=== PATIENT | male | born 1930 | race African-American/Black ===

== ENCOUNTER 2016-08-26 11:34 | Emergency (ER) | payer MEDICARE, OTHER ==
[~2016-08-26] VITALS: Ht 175.3 cm; Wt 93.0 kg
[~2016-08-26 11:34] MED LIST: AMLO10 PO; ASPI-94 PO; CALC600T10 PO; FERR325T PO; LISI40TA PO; PRAV80 PO; PRIL20TA2 PO
[2016-08-26 11:42] VITALS: BP 188/88; PULSE 89; RESP 20; TEMP 98.2; O2SAT 98
--- NOTE | 2016-08-26 11:45 | PD ---
Physical Exam Date Seen by Provider: Aug 26, 2016 Time Seen by Provider: 11:39 Narrative 85 y/o male her with complaints of sudden onset swaeting spell with nausea and vomiting while at [facility]. Patient has Cardiac Hx, but denies Chest pain and SOB. Patient diaphoretic and Noted to be Hypertensive in triage. Patient now only C/O nausea and is diaphoretic. Patient is on ASPIRIN 81 mg Daily and is not Diabetic. Cardiac protocols ordered. Patient awaiting Medical Bed placement. [facility] Medical Record Reviewed: Yes Supervised Visit with JOE: Yes Condition: Stable Donnell Zhang Aug 26, 2016 11:45
--- NOTE | 2016-08-26 12:33 | PD ---
HPI Chief Complaint: Dizziness Time Seen by Provider: 12:24 Travel History International Travel<30 days: No Contact w/Intl Traveler<30days: No Traveled to known affect area: No History of Present Illness HPI This patient comes to the emergency room complaining of lightheadedness. Duration is 3-4 days. [facility] but the patient cannot relay a diagnosis. He has not had any headache or syncope or chest pain. He denies vertigo sensation. He did feel nauseous today. He has chronic leg swelling and takes diuretics as needed. Severity is moderate. No alleviating factors. PFSH Past Medical History Hx Anticoagulant Therapy: Yes (ASA 81) Arthritis: Yes Blood Disorders: No Cancer: Yes (PROSTATE) Cardiovascular Problems: Yes (HTN) High Cholesterol: Yes Chemotherapy: No Congestive Heart Failure: Yes Diabetes: No Diminished Hearing: No Endocrine: No Gastrointestinal Disorders: Yes Genitourinary: No Hiatal Hernia: No Hypertension: Yes Immune Disorder: No Musculoskeletal: Yes Neurologic: No Psychiatric: No Reproductive: No Respiratory: No Radiation Therapy: Yes ([place] FOR PROSTATE CA) Ulcer: Yes Past Surgical History Abdominal Surgery: Yes (STOMACH ABCESS,) AICD: No Arteriovenous Shunt: No Insulin Pump: No Joint Replacement: Yes (L KNEE) Pacemaker: No Other Surgery: Yes (STOMACH ABCESS DRAINED) Social History Alcohol Use: Yes (occassionally ) Tobacco Use: No Substance Use: No Allergies-Medications (Allergen,Severity, Reaction): Coded Allergies: No Known Allergies (Unverified , 01/03/16) Reported Meds & Prescriptions Reported Meds & Active Scripts Active Reported B Complex (B-Complex Vitamins) 1 Cap 1 Cap PO DAILY Calcium Plus Vitamin D (Calcium Carbonate-Vitamin D) 500-50 Mg-Unit Cap 1 Cap PO BID Ferrous Sulfate 325 Mg Tab 325 Mg PO DAILY Pravastatin 80 Mg Tab 80 Mg PO DAILY Omeprazole 40 Mg Cap 20 Mg PO INTERMITTENT Aspirin 81 Mg Tabdr 81 Mg PO DAILY Lisinopril 40 Mg Tab 40 Mg PO DAILY Review of Systems General / Constitutional: No: Fever Eyes: No: Visual changes HENT: No: Headaches Cardiovascular: Positive: Edema, No: Chest Pain or Discomfort Respiratory: No: Shortness of Breath Gastrointestinal: Positive: Nausea, No: Abdominal Pain Genitourinary: No: Dysuria Musculoskeletal: Positive: Edema, No: Pain Skin: No Rash Neurologic: Positive: Dizziness, No: Weakness Psychiatric: No: Depression Endocrine: No: Polydipsia Hematologic/Lymphatic: No: Easy Bruising Physical Exam Narrative GENERAL: Well-nourished, well-developed patient with nausea and lightheadedness. SKIN: Focused skin assessment reveals no rash and nodules. Skin is Warm and dry. HEAD: Atraumatic. Normocephalic. EYES: Pupils equal and round. No scleral icterus. No injection or drainage. ENT: No nasal bleeding or discharge. Mucous membranes pink and moist. NECK: Trachea midline. No JVD. CARDIOVASCULAR: Regular rate and rhythm. No murmur appreciated. RESPIRATORY: No accessory muscle use. Clear to auscultation. Breath sounds equal bilaterally. GASTROINTESTINAL: Abdomen soft, non-tender, nondistended. Hepatic and splenic margins not palpable. MUSCULOSKELETAL: No obvious deformities. No clubbing. No cyanosis. Symmetric edema the feet ankles and lower legs NEUROLOGICAL: Awake and alert. No obvious cranial nerve deficits. Motor grossly within normal limits. Normal speech. PSYCHIATRIC: Appropriate mood and affect; insight and judgment normal. Data Data Last Documented VS Vital Signs Date Time Temp Pulse Resp B/P Pulse Ox O2 Delivery O2 Flow Rate FiO2 08/26/16 13:47 65 17 156/74 100 08/26/16 11:42 98.2 Orders Electrocardiogram (08/26/16 11:53) Complete Blood Count With Diff (08/26/16 11:53) Comprehensive Metabolic Panel (08/26/16 11:53) Iv Access Insert/Monitor (08/26/16 11:53) Ondansetron Inj (Zofran Inj) (08/26/16 13:15) Labs Laboratory Tests Test 08/26/16 12:06 White Blood Count 8.1 TH/MM3 Red Blood Count 4.28 MIL/MM3 Hemoglobin 12.7 GM/DL Hematocrit 38.7 % Mean Corpuscular Volume 90.2 FL Mean Corpuscular Hemoglobin 29.6 PG Mean Corpuscular Hemoglobin 32.8 % Concent Red Cell Distribution Width 15.6 % Platelet Count 153 TH/MM3 Mean Platelet Volume 8.9 FL Neutrophils (%) (Auto) 53.5 % Lymphocytes (%) (Auto) 36.6 % Monocytes (%) (Auto) 8.5 % Eosinophils (%) (Auto) 1.1 % Basophils (%) (Auto) 0.3 % Neutrophils # (Auto) 4.4 TH/MM3 Lymphocytes # (Auto) 3.0 TH/MM3 Monocytes # (Auto) 0.7 TH/MM3 Eosinophils # (Auto) 0.1 TH/MM3 Basophils # (Auto) 0.0 TH/MM3 CBC Comment DIFF FINAL Differential Comment Sodium Level 139 MEQ/L Potassium Level 3.6 MEQ/L Chloride Level 105 MEQ/L Carbon Dioxide Level 24.0 MEQ/L Anion Gap 10 MEQ/L Blood Urea Nitrogen 22 MG/DL Creatinine 1.38 MG/DL Estimat Glomerular Filtration 59 ML/MIN Rate Random Glucose 133 MG/DL Calcium Level 9.8 MG/DL Total Bilirubin 0.6 MG/DL Aspartate Amino Transf 31 U/L (AST/SGOT) Alanine Aminotransferase 26 U/L (ALT/SGPT) Alkaline Phosphatase 67 U/L Total Protein 8.3 GM/DL Albumin 3.9 GM/DL MDM Medical Decision Making Medical Screen Exam Complete: Yes Emergency Medical Condition: Yes Medical Record Reviewed: Yes Differential Diagnosis Vasovagal episode, cardiac arrhythmia, electrolyte abnormality Narrative Course I have reviewed the patient's electronic medical record. IV placed CBC is normal Metabolic profile is normal LFTs are normal Patient is neurologically intact. No clinical suspicion of stroke or ACS. I reviewed his EKG which shows sinus rhythm without ST elevation or ectopy Extended cardiac monitoring reveals sinus rhythm without ectopy I ended related him in the emergency department and he walked fine and felt well Stable for outpatient follow-up Diagnosis Primary Impression: Lightheadedness Additional Impression: Nausea Additional Instructions: The patient was advised to follow up with their physician and return if they worsen. Med/Other Pt SpecificInfo: Other Disposition: 01 DISCHARGE HOME Condition: Stable Colin Breen MD Aug 26, 2016 12:33
[2016-08-26 12:34] LABS: AUTOMATED NEUTROPHIL # 4.4 TH/MM3 (1.8-7.7); BASOPHIL % 0.3 % (0.0-2.0); EOSINOPHIL # 0.1 TH/MM3 (0-0.4); EOSINOPHIL % 1.1 % (0.0-4.0); HEMATOCRIT 38.7 % (39.0-51.0); HEMO FLAGS DIFF FINAL; LYMPH % 36.6 % (9.0-44.0); MEAN CELL VOLUME 90.2 FL (80.0-100.0); MEAN CORPUSCULAR HEMOGLOBIN 29.6 PG (27.0-34.0); MEAN CORPUSCULAR HGB CONC 32.8 % (32.0-36.0); MONO % 8.5 % (0.0-8.0); NEUT % 53.5 % (16.0-70.0); PLATELET COUNT 153 TH/MM3 (150-450); RED BLOOD COUNT 4.28 MIL/MM3 (4.50-5.90); RED CELL DISTRIBUTION WIDTH 15.6 % (11.6-17.2); WHITE BLOOD COUNT 8.1 TH/MM3 (4.0-11.0)
[2016-08-26] MEDS ORDERED: LISI40TA PO (12:52)
[2016-08-26] MEDS ORDERED: ASPI1TAB69 PO (12:52)
[2016-08-26] MEDS ORDERED: CALCCAP8 PO (12:52)
[2016-08-26] MEDS ORDERED: OMEP40CA2 PO (12:52)
[2016-08-26] MEDS ORDERED: FERR325T PO (12:52)
[2016-08-26] MEDS ORDERED: PRAV80TA2 PO (12:52)
[2016-08-26] MEDS ORDERED: VITACAP7 PO (12:52)
[2016-08-26 12:54] LABS: ALT (GPT) 26 U/L (12-78); ANION GAP 10 MEQ/L (5-15); AST (GOT) 31 U/L (15-37); BLOOD UREA NITROGEN 22 MG/DL (7-18); CHLORIDE 105 MEQ/L (98-107); GLOMERULAR FILTRATION RATE 59 ML/MIN (>89); POTASSIUM 3.6 MEQ/L (3.5-5.1); SODIUM (NA) 139 MEQ/L (136-145)
[2016-08-26 12:56] LABS: ALKALINE PHOSPHATASE 67 U/L (45-117); TOTAL BILIRUBIN ADULT 0.6 MG/DL (0.2-1.0)
[2016-08-26] MEDS ORDERED: ONDANSETRON HCL 4 MG/2 ML VIAL IV ONE (13:15)
[2016-08-26 13:47] VITALS: BP 156/74; PULSE 65; RESP 17; O2SAT 100
--- NOTE | 2016-08-27 23:09 | EKG ---
Date Performed: 08/26/2016 Time Performed: 12:10:51 PTAGE: 85 years EKG: Sinus rhythm MODERATE VOLTAGE CRITERIA FOR LVH, CONSIDER NORMAL VARIANT BORDERLINE ECG PREVIOUS TRACING : 03/15/2012 05.59 Compared to prior tracing no significant change DOCTOR: Raza Hays Interpretating Date/Time 08/27/2016 23:07:59
== END 2016-08-26 14:30 | disposition home or self-care (01) ==
LOC: NEPC 11:34
DX: R42 Dizziness and giddiness (principal); R11.0 Nausea
CPT/HCPCS: 80053; 85025; 93005; 96374; 99284; J2405

== ENCOUNTER 2017-01-23 07:27 | Emergency (ER) | payer MEDICARE, OTHER ==
[~2017-01-23] VITALS: Ht 177.8 cm; Wt 100.0 kg
[~2017-01-23 07:27] MED LIST changes: -AMLO10 PO; -ASPI-94 PO; +ASPI1TAB69 PO; -CALC600T10 PO; +CALCCAP8 PO; +OMEP40CA2 PO; -PRAV80 PO; +PRAV80TA2 PO; -PRIL20TA2 PO; +VITACAP7 PO
[2017-01-23 07:31] VITALS: BP 174/80; PULSE 73; RESP 17; TEMP 97.6; O2SAT 96
[2017-01-23] MEDS ORDERED: SODIUM CHLOR 0.9% 1000 ML INJ 1,000 ML IV ONE (07:54)
[2017-01-23] MEDS ORDERED: SODIUM CHLORIDE 0.9% FLUSH 10 ML FLUSH IVF PRN (08:00)
[2017-01-23 08:15] VITALS: O2SAT 96
--- NOTE | 2017-01-23 08:23 | PD ---
HPI . Lightheadedness Chief Complaint: Dizziness Time Seen by Provider: 07:54 Travel History International Travel<30 days: No Contact w/Intl Traveler<30days: No Traveled to known affect area: No History of Present Illness HPI This patient presents with a chief complaint of lightheadedness which was noted on awakening this morning. It has been associated with nausea and one episode of emesis. He does not describe vertigo. He denies any associated symptoms. He has not noted any modifying factor such as exacerbation with movement or standing. Symptoms are mild. PFSH Past Medical History Hx Anticoagulant Therapy: Yes (ASA 81) Arthritis: Yes Blood Disorders: No Cancer: Yes (PROSTATE) Cardiovascular Problems: Yes (HTN) High Cholesterol: Yes Chemotherapy: No Congestive Heart Failure: Yes Diabetes: No Diminished Hearing: No Endocrine: No Gastrointestinal Disorders: Yes Genitourinary: No Hiatal Hernia: No Hypertension: Yes Immune Disorder: No Implanted Vascular Access Dvce: Yes Medical other: Yes (ARTHRITIS, REFLUX) Musculoskeletal: Yes Neurologic: No Psychiatric: No Reproductive: No Respiratory: No Radiation Therapy: Yes ([place] FOR PROSTATE CA) Ulcer: Yes Past Surgical History Abdominal Surgery: Yes (STOMACH ABCESS) AICD: No Arteriovenous Shunt: No Insulin Pump: No Joint Replacement: Yes (L KNEE) Pacemaker: No Other Surgery: Yes (STOMACH ABCESS DRAINED) Social History Alcohol Use: Yes ("SOMEWHAT") Tobacco Use: No Substance Use: No Allergies-Medications (Allergen,Severity, Reaction): Coded Allergies: No Known Allergies (Unverified , 01/23/17) Reported Meds & Prescriptions Reported Meds & Active Scripts Active Reported Pravastatin 80 Mg Tab 80 Mg PO DAILY Omeprazole 40 Mg Cap 20 Mg PO INTERMITTENT Lisinopril 40 Mg Tab 40 Mg PO DAILY Review of Systems Except as stated in HPI: all other systems reviewed are Neg General / Constitutional: No: Fever, Chills Eyes: No: Diploplia, Blurred Vision HENT: Positive: Lightheadedness, No: Headaches, Vertigo Cardiovascular: No: Chest Pain or Discomfort, Palpitations Respiratory: No: Shortness of Breath Gastrointestinal: Positive: Nausea, Vomiting, No: Diarrhea, Abdominal Pain Genitourinary: No: Urgency, Frequency, Dysuria Neurologic: Positive: Dizziness, No: Syncope, Focal Abnormalities, Paresthesia , Incontinence Physical Exam Narrative GENERAL: Patient is awake and alert and fully oriented. However, he seems a bit confused. He is having trouble remembering the events that brought him to the hospital. SKIN: warm/dry. HEAD: Normocephalic. Atraumatic. EYES: Pupils equal and round. No scleral icterus. No injection or drainage. ENT: No nasal bleeding or discharge. Mucous membranes pink and moist. NECK: Trachea midline. Full range of motion without pain.. CARDIOVASCULAR: Regular rate and rhythm. Heart sounds are normal. RESPIRATORY: No accessory muscle use. Clear to auscultation. Breath sounds equal bilaterally. GASTROINTESTINAL: Abdomen soft. Nontender. Bowel sounds present. Nondistended. MUSCULOSKELETAL: No obvious deformities. NEUROLOGICAL: Awake and alert. No obvious cranial nerve deficits. Motor grossly within normal limits. Normal speech. PSYCHIATRIC: Appropriate mood and affect; insight and judgment normal. Data Data Last Documented VS Vital Signs Date Time Temp Pulse Resp B/P (MAP) Pulse Ox O2 Delivery O2 Flow Rate FiO2 01/23/17 10:00 70 16 165/82 (109) 99 Nasal Cannula 2.00 01/23/17 07:31 97.6 Orders Orders Complete Blood Count With Diff (01/23/17 07:54) Comprehensive Metabolic Panel (01/23/17 07:54) Troponin I (01/23/17 07:54) Urinalysis - C+S If Indicated (01/23/17 07:54) Ct Brain W/O Iv Contrast(Rout) (01/23/17 07:54) Ecg Monitoring (01/23/17 07:54) Iv Access Insert/Monitor (01/23/17 07:54) Oximetry (01/23/17 07:54) Sodium Chloride 0.9% Flush (Ns Flush) (01/23/17 08:00) Sodium Chlor 0.9% 1000 Ml Inj (Ns 1000 M (01/23/17 07:54) Prochlorperazine Inj (Compazine Inj) (01/23/17 08:30) Diphenhydramine Inj (Benadryl Inj) (01/23/17 08:30) Cath For Specimen (01/23/17 10:56) Labs Laboratory Tests Test 01/23/17 08:10 01/23/17 11:50 White Blood Count 6.9 TH/MM3 Red Blood Count 4.13 MIL/MM3 Hemoglobin 12.3 GM/DL Hematocrit 37.8 % Mean Corpuscular Volume 91.7 FL Mean Corpuscular Hemoglobin 29.8 PG Mean Corpuscular Hemoglobin Concent 32.5 % Red Cell Distribution Width 16.0 % Platelet Count 132 TH/MM3 Mean Platelet Volume 8.5 FL Neutrophils (%) (Auto) 55.3 % Lymphocytes (%) (Auto) 35.7 % Monocytes (%) (Auto) 7.4 % Eosinophils (%) (Auto) 1.3 % Basophils (%) (Auto) 0.3 % Neutrophils # (Auto) 3.8 TH/MM3 Lymphocytes # (Auto) 2.5 TH/MM3 Monocytes # (Auto) 0.5 TH/MM3 Eosinophils # (Auto) 0.1 TH/MM3 Basophils # (Auto) 0.0 TH/MM3 CBC Comment DIFF FINAL Differential Comment Blood Urea Nitrogen 20 MG/DL Creatinine 1.30 MG/DL Random Glucose 150 MG/DL Total Protein 7.5 GM/DL Albumin 3.4 GM/DL Calcium Level 8.4 MG/DL Alkaline Phosphatase 60 U/L Aspartate Amino Transf (AST/SGOT) 22 U/L Alanine Aminotransferase (ALT/SGPT) 19 U/L Total Bilirubin 0.5 MG/DL Sodium Level 140 MEQ/L Potassium Level 3.5 MEQ/L Chloride Level 107 MEQ/L Carbon Dioxide Level 21.8 MEQ/L Anion Gap 11 MEQ/L Estimat Glomerular Filtration Rate 64 ML/MIN Troponin I LESS THAN 0.02 NG/ML Urine Color LIGHT-YELLOW Urine Turbidity CLEAR Urine pH 6.0 Urine Specific [place] 1.015 Urine Protein 30 mg/dL Urine Glucose (UA) NEG mg/dL Urine Ketones NEG mg/dL Urine Occult Blood NEG Urine Nitrite NEG Urine Bilirubin NEG Urine Urobilinogen LESS THAN 2.0 MG/DL Urine Leukocyte Esterase NEG Urine RBC LESS THAN 1 /hpf Urine WBC LESS THAN 1 /hpf Urine Squamous Epithelial Cells <1 /hpf Urine Mucus FEW /lpf Microscopic Urinalysis Comment CULT NOT INDICATED MDM Medical Decision Making Medical Screen Exam Complete: Yes Emergency Medical Condition: Yes Medical Record Reviewed: Yes (past medical history of hypertension and hyperlipidemia. He also has a history of cerebrovascular disease. He has a history of peptic ulcer disease and colonic polyps.) Interpretation(s) EKG shows a sinus rhythm with no acute ischemic change. Differential Diagnosis Differential diagnosis of dizziness includes but is not limited to vertigo, dehydration, acute blood loss, sepsis, ACS Narrative Course This patient presents with lightheadedness associated with nausea and vomiting. He was treated with Zofran via EVAC. The patient continued to have nausea and vomiting after presentation to us. This was treated with Compazine and Benadryl. His nausea has now resolved. Last Impressions Head CT 01/23/17 0754 Signed Impressions: Service Date/Time: Monday, January 23, 2017 08:20 - CONCLUSION: 1. No acute intracranial abnormality. Marco Rodríguez MD CBC & BMP Diagram 01/23/17 08:10 Total Protein 7.5, Albumin 3.4, Calcium Level 8.4 L, Alkaline Phosphatase 60, Aspartate Amino Transf (AST/SGOT) 22, Alanine Aminotransferase (ALT/SGPT) 19, Total Bilirubin 0.5 trop < 0.02 UA is negative. Diagnosis Primary Impression: Lightheadedness Additional Impression: Nausea and vomiting Qualified Codes: R11.2 - Nausea with vomiting, unspecified Patient Instructions: Acute Nausea and Vomiting (DC), Dizziness (ED), General Instructions Disposition: 01 DISCHARGE HOME Condition: Stable Zabrina Dickson MD Jan 23, 2017 08:23
[2017-01-23] MEDS ORDERED: PROCHLORPERAZINE INJ 10 MG/2 ML VIAL IV PUSH ONE (08:30)
[2017-01-23] MEDS ORDERED: diphenhydrAMINE HCL 50 MG/ML VIAL IV PUSH ONE (08:30)
[2017-01-23 08:31] LABS: AUTOMATED NEUTROPHIL # 3.8 TH/MM3 (1.8-7.7); BASOPHIL % 0.3 % (0.0-2.0); EOSINOPHIL # 0.1 TH/MM3 (0-0.4); EOSINOPHIL % 1.3 % (0.0-4.0); HEMATOCRIT 37.8 % (39.0-51.0); HEMO FLAGS DIFF FINAL; LYMPH % 35.7 % (9.0-44.0); LYMPHOCYTE # 2.5 TH/MM3 (1.0-4.8); MEAN CELL VOLUME 91.7 FL (80.0-100.0); MEAN CORPUSCULAR HEMOGLOBIN 29.8 PG (27.0-34.0); MEAN CORPUSCULAR HGB CONC 32.5 % (32.0-36.0); MONO % 7.4 % (0.0-8.0); NEUT % 55.3 % (16.0-70.0); PLATELET COUNT 132 TH/MM3 (150-450); RED BLOOD COUNT 4.13 MIL/MM3 (4.50-5.90); WHITE BLOOD COUNT 6.9 TH/MM3 (4.0-11.0)
[2017-01-23 08:44] LABS: ANION GAP 11 MEQ/L (5-15); AST (GOT) 22 U/L (15-37); BICARBONATE 21.8 MEQ/L (21.0-32.0); BLOOD UREA NITROGEN 20 MG/DL (7-18); CHLORIDE 107 MEQ/L (98-107); GLOMERULAR FILTRATION RATE 64 ML/MIN (>89); POTASSIUM 3.5 MEQ/L (3.5-5.1); SODIUM (NA) 140 MEQ/L (136-145)
--- NOTE | 2017-01-23 08:48 | RADRPT ---
EXAM DATE/TIME: 01/23/2017 08:20 [facility] COMPARISON: CT BRAIN W/O CONTRAST, January 03, 2016, 18:18. INDICATIONS : Dizziness with diaphoresis and vomiting. RADIATION DOSE: 39.14 CTDIvol (mGy) MEDICAL HISTORY : Carcinoma, prostate. Hypertension. Diabetes mellitus type 2. SURGICAL HISTORY : None. ENCOUNTER: Initial ACUITY: 1 day PAIN SCALE: 0/10 LOCATION: cranial TECHNIQUE: Multiple contiguous axial images were obtained of the head. Using automated exposure control and adj ustment of the mA and/or kV according to patient size, radiation dose was kept as low as reasonably a chievable to obtain optimal diagnostic quality images. DICOM format image data is available electro nically for review and comparison. FINDINGS: CEREBRUM: Moderate diffuse cerebral volume loss. The ventricles are normal for age. No evidence of midline pavel ft, mass lesion, hemorrhage or acute infarction. No extra-axial fluid collections are seen. POSTERIOR FOSSA: The cerebellum and brainstem are intact. The 4th ventricle is midline. The cerebellopontine angle i s unremarkable. EXTRACRANIAL: The visualized portion of the orbits is intact. SKULL: The calvaria is intact. No evidence of skull fracture. CONCLUSION: 1. No acute intracranial abnormality. Marco Rodríguez MD on January 23, 2017 at 8:45 Board Certified Radiologist. This report was verified electronically.
[2017-01-23 08:49] LABS: ALKALINE PHOSPHATASE 60 U/L (45-117); ALT (GPT) 19 U/L (12-78); TOTAL BILIRUBIN ADULT 0.5 MG/DL (0.2-1.0)
[2017-01-23 10:00] VITALS: BP 165/82; PULSE 70; RESP 16; O2SAT 99
[2017-01-23 12:11] LABS: BLOOD, URINE NEG (NEG); COMMENT (UR) CULT NOT INDICATED; CULTURE IF INDICATED CULT NOT INDICATED; GLUCOSE,URINE NEG (NEG); KETONE, URINE NEG (NEG); MUCUS URINE FEW /lpf (OCC); NITRITE,URINE NEG (NEG); SQUAMOUS EPITHELIAL CELL URINE <1 /hpf (0-5); URINE COLOR LIGHT-YELLOW (YELLW/STRAW)
[2017-01-23 13:11] VITALS: BP 183/80; PULSE 64; RESP 15; O2SAT 97
--- NOTE | 2017-01-24 08:08 | EKG ---
Date Performed: 01/23/2017 Time Performed: 07:42:02 PTAGE: 86 years EKG: Sinus rhythm MODERATE VOLTAGE CRITERIA FOR LVH, CONSIDER NORMAL VARIANT BORDERLINE ECG Since PREVIOUS TRACING , no significant change noted PREVIOUS TRACIN08/26/2016 12.10 DOCTOR: Margaret Waddell Interpretating Date/Time 01/24/2017 08:06:35
[2017-02-14] MEDS ORDERED: ASPI-110 PO (08:45)
[2017-02-14] MEDS ORDERED: OMEP40CA2 PO (08:45)
[2017-02-14] MEDS ORDERED: HYDR25TA5 PO (08:45)
[2017-02-14] MEDS ORDERED: FERR325T8 PO (08:45)
[2017-02-14] MEDS ORDERED: CALC1TAB12 PO (08:45)
[2017-02-14] MEDS ORDERED: POTA-163 PO (08:45)
== END 2017-01-23 13:41 | disposition home or self-care (01) ==
LOC: NEPC 07:27
DX: R11.2 Nausea with vomiting, unspecified (principal); R42 Dizziness and giddiness; I10 Essential (primary) hypertension; K21.9 Gastro-esophageal reflux disease without esophagitis; M19.90 Unspecified osteoarthritis, unspecified site; I50.9 Heart failure, unspecified; E78.00 Pure hypercholesterolemia, unspecified
CPT/HCPCS: 70450; 80053; 81001; 84484; 85025; 93005; 96361; 96374; 96375; 99285; J0780; J1200; J7030

== ENCOUNTER 2017-03-11 16:44 | Emergency (ER) | payer MEDICARE, OTHER ==
[~2017-03-11 16:44] MED LIST changes: +ASPI1TAB57 PO; -ASPI1TAB69 PO; +CALC1TAB12 PO; -CALCCAP8 PO; -FERR325T PO; +FERR325T18 PO; +HYDR25TA5 PO; +POTA-163 PO; -VITACAP7 PO
[2017-03-11 16:48] VITALS: BP 173/83; PULSE 83; RESP 16; TEMP 97.6; O2SAT 95
--- NOTE | 2017-03-11 17:51 | RADRPT ---
EXAM DATE/TIME: 03/11/2017 17:41 [facility] COMPARISON: No previous studies available for comparison. INDICATIONS : Palpitations. Dizziness. Nausea. MEDICAL HISTORY : Carcinoma, prostatic. Hypertension Diabetes mellitus type II. Congestive heart failure. SURGICAL HISTORY : None. ENCOUNTER: Initial ACUITY: 1 day PAIN SCORE: 0/10 LOCATION: Bilateral chest FINDINGS: The cardiomediastinal contours are within normal limits. The lungs are clear. There is pleural calcif ication on the left. The visualized bony structures are intact. CONCLUSION: 1. No acute cardiopulmonary findings. 2. Pleural calcification on the left. Oh Callaway MD on March 11, 2017 at 17:49 Board Certified Radiologist. This report was verified electronically.
[2017-03-11 18:15] LABS: AUTOMATED NEUTROPHIL # 3.6 TH/MM3 (1.8-7.7); BASOPHIL % 0.3 % (0.0-2.0); EOSINOPHIL # 0.1 TH/MM3 (0-0.4); EOSINOPHIL % 1.2 % (0.0-4.0); HEMATOCRIT 35.4 % (39.0-51.0); HEMO FLAGS DIFF FINAL; LYMPH % 25.8 % (9.0-44.0); LYMPHOCYTE # 1.4 TH/MM3 (1.0-4.8); MEAN CELL VOLUME 90.4 FL (80.0-100.0); MEAN CORPUSCULAR HEMOGLOBIN 30.2 PG (27.0-34.0); MEAN CORPUSCULAR HGB CONC 33.4 % (32.0-36.0); MONO % 7.6 % (0.0-8.0); NEUT % 65.1 % (16.0-70.0); PLATELET COUNT 128 TH/MM3 (150-450); RED BLOOD COUNT 3.91 MIL/MM3 (4.50-5.90); RED CELL DISTRIBUTION WIDTH 15.4 % (11.6-17.2); WHITE BLOOD COUNT 5.6 TH/MM3 (4.0-11.0)
--- NOTE | 2017-03-11 18:25 | PD ---
HPI Chief Complaint: Syncope/Near-Syncope Time Seen by Provider: 17:45 Travel History International Travel<30 days: No Contact w/Intl Traveler<30days: No Traveled to known affect area: No History of Present Illness HPI The patient is a 86-year-old male who presents to the emergency department for dizziness. The patient states he mowed his lawn earlier today, became somewhat short of breath, lightheaded, dizzy, and diaphoretic. The patient went into the house, and noted that the dizziness continued. The dizziness is present at rest, slightly worse when he changes positions, however , is not always precipitated by movement of the head to the left or right. He does complain of mild nausea secondary to the lightheadedness and dizziness. The patient states he's had several episodes of this in the past where he was evaluated in the emergency department had blood work and a CT the brain which were negative. 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 He also notes a history congestive heart failure, but denies any history of arrhythmias or coronary artery disease. The patient is followed by his director of assessing, Dr. Beaucahmp, and his primary physician at the [facility]. He denies any chest pain today, did complain of mild shortness of breath with this dizziness. He does note he has difficulty ambulating, feels like he is off balance and leaning to the left or right when he ambulates. PFSH Past Medical History Hx Anticoagulant Therapy: Yes (ASA 81) Arthritis: Yes Blood Disorders: No Cancer: Yes (PROSTATE) Cardiovascular Problems: Yes (HTN) High Cholesterol: Yes Chemotherapy: No Congestive Heart Failure: Yes Diabetes: No Diminished Hearing: No Endocrine: No Gastrointestinal Disorders: Yes Genitourinary: No Hiatal Hernia: No Hypertension: Yes Immune Disorder: No Implanted Vascular Access Dvce: Yes Medical other: Yes (ARTHRITIS, REFLUX) Musculoskeletal: Yes Neurologic: No Psychiatric: No Reproductive: No Respiratory: No Radiation Therapy: Yes ([place] FOR PROSTATE CA) Ulcer: Yes Tetanus Vaccination: < 5 Years Influenza Vaccination: Yes Past Surgical History Abdominal Surgery: Yes (STOMACH ABCESS) AICD: No Arteriovenous Shunt: No Insulin Pump: No Joint Replacement: Yes (L KNEE) Pacemaker: No Other Surgery: Yes (STOMACH ABCESS DRAINED) Social History Alcohol Use: Yes ("SOMEWHAT") Tobacco Use: No Substance Use: No Allergies-Medications (Allergen,Severity, Reaction): Coded Allergies: No Known Allergies (Verified Allergy, Unknown, 02/14/17) Reported Meds & Prescriptions Reported Meds & Active Scripts Active Reported Potassium Chloride ER (Potassium Chloride) 20 Meq Tab 20 Meq PO DAILY PRN Hydrochlorothiazide 25 Mg Tab 25 Mg PO DAILY PRN Calcium 500 +D (Calcium Carbonate-Cholecalciferol) 500-400 Mg-Unit Tab 1 Tab PO DAILY Ferrous Sulfate 325 Mg (65 Mg Iron) Tablet 325 Mg PO DAILY Aspirin 81 (Aspirin) 81 Mg Tabdr 81 Mg PO DAILY Omeprazole 40 Mg Cap 40 Mg PO EVERY 3 DAYS Pravastatin 80 Mg Tab 80 Mg PO DAILY Lisinopril 40 Mg Tab 40 Mg PO DAILY Review of Systems Except as stated in HPI: all other systems reviewed are Neg HENT: Positive: Lightheadedness, No: Vertigo Cardiovascular: Positive: Diaphoresis, No: Chest Pain or Discomfort, Tachycardia Respiratory: Positive: Shortness of Breath Gastrointestinal: Positive: Nausea, No: Vomiting Neurologic: Positive: Dizziness, Ataxia, No: Headache, Change in Mentation, Slurred Speech, Paresthesia, Sensory Disturbance Physical Exam Narrative GENERAL: Awake, alert, pleasant 86-year-old male who appears his stated age and is in no acute respiratory distress. SKIN: Focused skin assessment warm/dry. HEAD: Atraumatic. Normocephalic. EYES: Pupils equal and round. Pupils are 3 mm bilateral and reactive. EOMs are intact. Patient is able to see fingers at a distance of 2 feet while wearing glasses without difficulty. ENT: No nasal bleeding or discharge. Mucous membranes pink and moist. NECK: Trachea midline. No JVD. CARDIOVASCULAR: Regular rate and rhythm. No murmur appreciated. RESPIRATORY: No accessory muscle use. Clear to auscultation. Breath sounds equal bilaterally. GASTROINTESTINAL: Abdomen soft, non-tender, nondistended. Hepatic and splenic margins not palpable. MUSCULOSKELETAL: No obvious deformities. No clubbing. No cyanosis. No edema. NEUROLOGICAL: Awake and alert. No obvious cranial nerve deficits. Motor grossly within normal limits. Normal speech. No drift of the upper or lower extremities. Finger to nose is normal. [id number] is normal. Smile is symmetric. Sensation is intact of the face, legs, and arms bilaterally. However, patient was unable to ambulate heel to toe and had difficulty ambulating in a straight line. PSYCHIATRIC: Appropriate mood and affect; insight and judgment normal. Data Data Last Documented VS Vital Signs Date Time Temp Pulse Resp B/P (MAP) Pulse Ox O2 Delivery O2 Flow Rate FiO2 03/11/17 23:11 03/11/17 22:05 66 18 98 03/11/17 20:58 Room Air 03/11/17 16:48 97.6 Orders Orders Electrocardiogram (03/11/17 17:) Basic Metabolic Panel (Bmp) (03/11/17 17:) Complete Blood Count With Diff (03/11/17:) Magnesium (Mg) (03/11/17:) Ckmb (Isoenzyme) Profile (03/11/17:) Troponin I (03/11/17:) Act Partial Throm Time (Ptt) (03/11/17:) Prothrombin Time / Inr (Pt) (03/11/17:) Urinalysis - C+S If Indicated (03/11/17 17:) Chest, Pa & Lat (03/11/17 17:) Mri Brain W/O Contrast (03/11/17 ) CKMB (03/11/17 17:30) CKMB% (03/11/17 17:30) Sodium Chlor 0.9% 1000 Ml Inj (Ns 1000 M (03/11/17 19:45) Ed Discharge Order (03/11/17 22:35) Labs Laboratory Tests Test 03/11/17 17:30 White Blood Count 5.6 TH/MM3 Red Blood Count 3.91 MIL/MM3 Hemoglobin 11.8 GM/DL Hematocrit 35.4 % Mean Corpuscular Volume 90.4 FL Mean Corpuscular Hemoglobin 30.2 PG Mean Corpuscular Hemoglobin Concent 33.4 % Red Cell Distribution Width 15.4 % Platelet Count 128 TH/MM3 Mean Platelet Volume 8.8 FL Neutrophils (%) (Auto) 65.1 % Lymphocytes (%) (Auto) 25.8 % Monocytes (%) (Auto) 7.6 % Eosinophils (%) (Auto) 1.2 % Basophils (%) (Auto) 0.3 % Neutrophils # (Auto) 3.6 TH/MM3 Lymphocytes # (Auto) 1.4 TH/MM3 Monocytes # (Auto) 0.4 TH/MM3 Eosinophils # (Auto) 0.1 TH/MM3 Basophils # (Auto) 0.0 TH/MM3 CBC Comment DIFF FINAL Differential Comment Prothrombin Time 10.2 SEC Prothromb Time International Ratio 0.9 RATIO Activated Partial Thromboplast Time 25.3 SEC Blood Urea Nitrogen 23 MG/DL Creatinine 1.07 MG/DL Random Glucose 118 MG/DL Calcium Level 9.0 MG/DL Magnesium Level 1.8 MG/DL Sodium Level 139 MEQ/L Potassium Level 3.8 MEQ/L Chloride Level 106 MEQ/L Carbon Dioxide Level 22.4 MEQ/L Anion Gap 11 MEQ/L Estimat Glomerular Filtration Rate 80 ML/MIN Total Creatine Kinase 304 U/L Creatine Kinase MB 4.4 NG/ML Troponin I LESS THAN 0.02 NG/ML MDM Medical Decision Making Medical Screen Exam Complete: Yes Emergency Medical Condition: Yes Medical Record Reviewed: Yes Interpretation(s) EKG reveals sinus rhythm with occasional supraventricular premature complexes. Differential Diagnosis Differential diagnosis includes CVA, cerebellar infarct, intracranial hemorrhage , hyponatremia, dehydration, orthostatic hypotension, acute coronary syndrome, deconditioning. Narrative Course IV was established, labs are drawn and sent, and the patient was placed on cardiac telemetry monitoring and continuous pulse oximetry monitoring. EKG was ordered and interpreted. MRI the brain was ordered to evaluate for possible cerebellar infarct. The patient already took an aspirin earlier today. Troponin and CPK were sent to lab. The patient was signed out to the oncoming physician at 7 PM with MRI and laboratory evaluation pending. If MRI is negative and troponin/CPK are unremarkable, the patient could be discharged home. Diagnosis Primary Impression: Dizziness Condition: Stable Cristobal Kang MD Mar 11, 2017 18:25
[2017-03-11 18:26] LABS: ANION GAP 11 MEQ/L (5-15); BICARBONATE 22.4 MEQ/L (21.0-32.0); BLOOD UREA NITROGEN 23 MG/DL (7-18); CHLORIDE 106 MEQ/L (98-107); GLOMERULAR FILTRATION RATE 80 ML/MIN (>89); MAGNESIUM 1.8 MG/DL (1.5-2.5); POTASSIUM 3.8 MEQ/L (3.5-5.1); SODIUM (NA) 139 MEQ/L (136-145)
[2017-03-11 18:29] LABS: APTT (PATIENT) 25.3 SEC (24.3-30.1); INTERNATIONAL NORMALIZED RATIO 0.9 RATIO; PROTHROMBIN TIME - PATIENT 10.2 SEC (9.8-11.6)
[2017-03-11 18:30] LABS: CREATINE KINASE 304 U/L (39-308)
[2017-03-11 18:42] LABS: CKMB 4.4 NG/ML (0.5-3.6)
[2017-03-11] MEDS ORDERED: SODIUM CHLOR 0.9% 1000 ML INJ 1,000 ML IV ONE (19:45)
--- NOTE | 2017-03-11 20:57 | RADRPT ---
EXAM DATE/TIME: 03/11/2017 19:47 [facility] COMPARISON: No previous studies available for comparison. INDICATIONS : CVA. Ataxia. MEDICAL HISTORY : Hypertension. Hypercholesterolemia. Carcinoma, prostate. Anemia. SURGICAL HISTORY : Left knee. ENCOUNTER: Subsequent ACUITY: 1 day PAIN SCORE: 3/10 LOCATION: cranial TECHNIQUE: Multiplanar, multisequence MRI of the brain was performed without contrast. FINDINGS: CEREBRUM: There is a focal 0.7 cm area of signal abnormality in the central aspect of the nic likely represent ing an old lacunar infarct. The ventricles and cortical sulci are mildly widened. No evidence of mid line shift, mass lesion, hemorrhage or acute infarction. No extraaxial fluid collections are seen. The pituitary gland and suprasellar cistern are normal in configuration. WHITE MATTER: No significant signal abnormalities are seen in the white matter. POSTERIOR FOSSA: The cerebellum and brainstem are intact. The 4th ventricle is midline. The cerebellopontine angle is unremarkable. The cerebellar tonsils are normal in position. DIFFUSION IMAGING: No focal areas of restricted diffusion are seen. No evidence of acute infarction. EXTRACRANIAL: The visualized portions of the orbits and paranasal sinuses are unremarkable. CONCLUSION: 1. No acute abnormality seen. 2. 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 3. Mild age-appropriate atrophy. Dylon Ivan MD on March 11, 2017 at 20:53 Board Certified Radiologist. This report was verified electronically.
[2017-03-11 20:58] VITALS: BP 173/81; PULSE 69; RESP 18; O2SAT 97
[2017-03-11 22:05] VITALS: BP 182/86; PULSE 66; RESP 18; O2SAT 98
[2017-03-11 22:24] VITALS: BP 175/92
--- NOTE | 2017-03-11 22:35 | PD ---
Physical Exam Date Seen by Provider: Mar 11, 2017 Time Seen by Provider: 19:00 Narrative She was signed out to me by Dr. Ronak Kang at 1900 hrs. of change of shift. The patient was awaiting an MRI of the brain. Patient came in with dizziness and unsteadiness in his gait. The patient was noted to have elevated blood pressure initially when he came in. It was over 200 systolic. The patient does take lisinopril 40 mg daily. He states he took his medicine and did not miss any. The patient has no headache. He has ambulatory dizziness. Labs did show an elevated BUN compared to his creatinine. Data Data Last Documented VS Vital Signs Date Time Temp Pulse Resp B/P (MAP) Pulse Ox O2 Delivery O2 Flow Rate FiO2 03/11/17 22:24 175/92 (119) 03/11/17 22:05 66 18 98 03/11/17 20:58 Room Air 03/11/17 16:48 97.6 Orders Orders Electrocardiogram (03/11/17 17:) Basic Metabolic Panel (Bmp) (03/11/17 17:01) Complete Blood Count With Diff (03/11/17 17:) Magnesium (Mg) (03/11/17 17:01) Ckmb (Isoenzyme) Profile (03/11/17 17:) Troponin I (03/11/17 17:) Act Partial Throm Time (Ptt) (03/11/17 17:) Prothrombin Time / Inr (Pt) (03/11/17 17:) Urinalysis - C+S If Indicated (03/11/17 17:) Chest, Pa & Lat (03/11/17 17:) Mri Brain W/O Contrast (03/11/17 ) CKMB (03/11/17 17:30) CKMB% (03/11/17 17:30) Sodium Chlor 0.9% 1000 Ml Inj (Ns 1000 M (03/11/17 19:45) Labs Laboratory Tests Test 03/11/17 17:30 White Blood Count 5.6 TH/MM3 Red Blood Count 3.91 MIL/MM3 Hemoglobin 11.8 GM/DL Hematocrit 35.4 % Mean Corpuscular Volume 90.4 FL Mean Corpuscular Hemoglobin 30.2 PG Mean Corpuscular Hemoglobin Concent 33.4 % Red Cell Distribution Width 15.4 % Platelet Count 128 TH/MM3 Mean Platelet Volume 8.8 FL Neutrophils (%) (Auto) 65.1 % Lymphocytes (%) (Auto) 25.8 % Monocytes (%) (Auto) 7.6 % Eosinophils (%) (Auto) 1.2 % Basophils (%) (Auto) 0.3 % Neutrophils # (Auto) 3.6 TH/MM3 Lymphocytes # (Auto) 1.4 TH/MM3 Monocytes # (Auto) 0.4 TH/MM3 Eosinophils # (Auto) 0.1 TH/MM3 Basophils # (Auto) 0.0 TH/MM3 CBC Comment DIFF FINAL Differential Comment Prothrombin Time 10.2 SEC Prothromb Time International Ratio 0.9 RATIO Activated Partial Thromboplast Time 25.3 SEC Blood Urea Nitrogen 23 MG/DL Creatinine 1.07 MG/DL Random Glucose 118 MG/DL Calcium Level 9.0 MG/DL Magnesium Level 1.8 MG/DL Sodium Level 139 MEQ/L Potassium Level 3.8 MEQ/L Chloride Level 106 MEQ/L Carbon Dioxide Level 22.4 MEQ/L Anion Gap 11 MEQ/L Estimat Glomerular Filtration Rate 80 ML/MIN Total Creatine Kinase 304 U/L Creatine Kinase MB 4.4 NG/ML Troponin I LESS THAN 0.02 NG/ML MDM Medical Record Reviewed: Yes Supervised Visit with JOE: No Differential Diagnosis Posterior circulation stroke versus metabolic arrangement versus vertigo Narrative Course 86-year-old male presents with dizziness and unsteady gait. The patient was noted to have an elevated BUN over his creatinine. The patient's blood pressure was initially over 200 systolic. Patient has no focal deficit. An MRI was ordered to rule out posterior circulation stroke. MRI shows no evidence of acute process. There is an old lacunar infarct in the central nic area. No midline shift or mass effect noted. The patient was given 1 L of IVD fluid. Post administration of the fluid, the patient was ambulated and states he feels back to baseline. I informed him that he was likely dehydrated. His blood pressure came down nicely. Is currently in the 170s over 80s. He is asymptomatic at this point. I recommended that he check his blood pressure twice daily for the next 2-3 days. He is instructed to call his doctor at the [facility] with the results. I reported that this point we would not change his blood pressure as it has come down without any intervention. Diagnosis Primary Impression: Dizziness Additional Impressions: Dehydration Hypertension Additional Instruction: Check your blood pressure twice daily for the next 2-3 days. Call [facility] with [facility] results to see if she may want to change her dosage. Return if feeling worse, fevers chills, headache, recurrent dizziness, or any other reason that concerns you. Disposition: 01 DISCHARGE HOME Condition: Stable Joseph Daily MD Mar 11, 2017 22:35
--- NOTE | 2017-03-12 14:21 | EKG ---
Date Performed: 03/11/2017 Time Performed: 17:33:39 PTAGE: 86 years EKG: Sinus rhythm WITH OCCASIONAL SUPRAVENTRICULAR PREMATURE COMPLEXES VOLTAGE CRITERIA FOR LVH ABNORMAL ECG PREVIOUS TRACING : 01/23/2017 07.42 Compared to prior tracing no significant change DOCTOR: Raza Hays Interpretating Date/Time 03/12/2017 14:14:59
== END 2017-03-11 23:11 | disposition home or self-care (01) ==
LOC: NEPE 16:44
DX: R42 Dizziness and giddiness (principal); I10 Essential (primary) hypertension; E86.0 Dehydration; R11.0 Nausea; R06.02 Shortness of breath; R26.2 Difficulty in walking, not elsewhere classified; R94.31 Abnormal electrocardiogram [ECG] [EKG]; E78.00 Pure hypercholesterolemia, unspecified; Z79.82 Long term (current) use of aspirin; Z87.39 Personal history of other diseases of the musculoskeletal system and connective tissue; Z85.46 Personal history of malignant neoplasm of prostate; Z86.79 Personal history of other diseases of the circulatory system; Z87.19 Personal history of other diseases of the digestive system
CPT/HCPCS: 70551; 71020; 80048; 82550; 82552; 83735; 84484; 85025; 85610; 85730; 93005; 96360; 96361; 99285; J7030

== ENCOUNTER → 2017-04-04 | Outpatient (CLI) | payer MEDICARE, OTHER ==
--- NOTE | 2017-04-05 11:38 | RSPPFT ---
DATE OF PROCEDURE: 04/04/17 COMMENTS: Spirometry with FVC of 2.5 predicted 3.5, FEV1 of 2.0 predicted 2.7, FEV1/FVC ratio 80% predicted 76%. There is increased airways resistance. DLCO is within the predicted range. There is some responsiveness to acutely inhaled bronchodilator with FVC increasing to 3.2. IMPRESSION:
== END ==
LOC: HRSP 08:43
PROVIDERS: ATTEND Internal Medicine Pulmonary Disease
DX: R06.02 Shortness of breath (principal)
CPT/HCPCS: 94060; 94620; 94726; 94729